=== PATIENT | female | born 1955 ===

== ENCOUNTER 2017-09-14 07:59 | Emergency (ER) | payer OTHER ==
[~2017-09-14] VITALS: Ht 160 cm; Wt 63.5 kg
[2017-09-17] MEDS ORDERED: LOPRESSOR25 MG PO (15:39)
== END 2017-09-14 15:09 | disposition home or self-care (01) ==
LOC: ER 07:59
DX: S61.412A Laceration without foreign body of left hand, initial encounter (principal); W45.8XXA Other foreign body or object entering through skin, initial encounter; Y93.89 Activity, other specified; Y92.098 Other place in other non-institutional residence as the place of occurrence of the external cause; Y99.8 Other external cause status

== ENCOUNTER 2017-09-22 05:50 | Day surgery (SDC) | payer OTHER ==
[~2017-09-22 05:50] MED LIST: LOPRESSOR25 MG PO
== END 2017-09-22 11:50 | disposition home or self-care (01) ==
LOC: CIR.AMB 05:50
DX: S66.323A Laceration of extensor muscle, fascia and tendon of left middle finger at wrist and hand level, initial encounter (principal); S66.325A Laceration of extensor muscle, fascia and tendon of left ring finger at wrist and hand level, initial encounter; S66.327A Laceration of extensor muscle, fascia and tendon of left little finger at wrist and hand level, initial encounter; S64.02XA Injury of ulnar nerve at wrist and hand level of left arm, initial encounter; S61.223A Laceration with foreign body of left middle finger without damage to nail, initial encounter; S61.225A Laceration with foreign body of left ring finger without damage to nail, initial encounter; S61.227A Laceration with foreign body of left little finger without damage to nail, initial encounter

== ENCOUNTER 2021-01-15 06:20 | Day surgery (SDC) | payer OTHER | END 2021-01-15 14:45 | disposition home or self-care (01) | LOC: CIR.AMB 06:20 | PROVIDERS: ATTEND Orthopaedic Surgery Hand Surgery | DX: S61.421A Laceration with foreign body of right hand, initial encounter (principal); Z20.822 Contact with and (suspected) exposure to COVID-19 ==